=== PATIENT | female | born 1970 | race American Indian/Alaskan Native ===

== ENCOUNTER → 2019-10-11 | Outpatient (CLI) | payer MEDICAID, SELFPAY | PROVIDERS: Family Provider Nurse Practitioner; Visit Provider Nurse Practitioner Psychiatric/Mental Health | DX: F43.12 Post-traumatic stress disorder, chronic (principal) ==

== ENCOUNTER → 2019-10-19 09:38 | Outpatient (BNVA) | payer MEDICAID, SELFPAY | PROVIDERS: Family Provider Nurse Practitioner; PCP Nurse Practitioner; Visit Provider Social Worker | DX: F43.12 Post-traumatic stress disorder, chronic (principal); F32.0 Major depressive disorder, single episode, mild | CPT/HCPCS: 90834 ==

== ENCOUNTER 2019-10-20 10:00 | Outpatient (RCR) | payer OTHER, SELFPAY | END 2019-11-12 23:59 | disposition home or self-care (01) | LOC: BHCOACUTE 10:00 | PROVIDERS: Family Provider Nurse Practitioner; PCP Nurse Practitioner; Visit Provider Psychiatry & Neurology Neurology | DX: M25.50 Pain in unspecified joint (principal); G89.29 Other chronic pain | CPT/HCPCS: H2022 ==

== ENCOUNTER 2019-10-25 10:30 | Outpatient (REF) | payer MEDICAID, SELFPAY ==
[2019-10-25 11:09] LABS: Alanine Aminotransferase 22 U/L (0-33); Albumin Level 4.4 g/dL (3.5-5.2); Alkaline Phosphatase 123 IU/L (35-105); Anion Gap 18.9 (5-19); Aspartate Amino Transferase 29 U/L (0-32); Blood Urea Nitrogen 15 mg/dL (6-20); Calcium 10.3 mg/Dl (8.6-10.0); Carbon Dioxide 23 mmol/L (22-29); Chloride 101 mmol/L (98-107); Chol HDL Ratio 8.17 mg/dL (0.0-4.40); Cholesterol 286 mg/dL (0-200); Globulin 3.4 g/dL (1.3-4.6); Glomerular Filtration Rate 88.9 mL/min (90-130); Glucose 144 mg/dL (74-109); HDL Cholesterol 35 mg/dL (60-100); Potassium 3.9 mmol/L (3.5-5.1); Sodium 139 mmol/L (136-145); Total Bilirubin 0.4 mg/dL (0.15-1.2); Total Protein 7.8 g/dL (6.6-8.7); Triglycerides 505 mg/dL (0-150)
[2019-10-25 11:53] LABS: LDL Cholesterol Direct 190 mg/dL (0-100)
[2019-10-25 11:56] LABS: Estmated Average Glucose 183
== END 2019-10-25 10:31 | disposition home or self-care (01) ==
LOC: LAB 10:30
PROVIDERS: Family Provider Nurse Practitioner; PCP Nurse Practitioner; Visit Provider Nurse Practitioner
DX: E11.65 Type 2 diabetes mellitus with hyperglycemia (principal)
CPT/HCPCS: 36415; 80053; 80061; 83036; 83721

== ENCOUNTER → 2019-11-16 07:56 | Outpatient (BNVA) | payer MEDICAID, SELFPAY | PROVIDERS: Family Provider Nurse Practitioner; PCP Nurse Practitioner; Visit Provider Nurse Practitioner Psychiatric/Mental Health | DX: G89.29 Other chronic pain (principal); G47.00 Insomnia, unspecified; F43.12 Post-traumatic stress disorder, chronic; F33.42 Major depressive disorder, recurrent, in full remission | CPT/HCPCS: 99214 ==

== ENCOUNTER 2019-11-30 10:01 | Emergency (ER) | payer MEDICAID, SELFPAY ==
[2019-11-30 10:22] VITALS: BP 165/106; PULSE 101; RESP 16; TEMP 37; O2SAT 96
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
--- NOTE | 2019-11-30 11:17 | XR_ITS ---
WS: [id number] XR elbow LT min 3V* [id number] REASON FOR EXAM: injury FINDINGS: Calcification is seen along the lateral condyle of the humerus suggesting a remote avulsion fracture and lateral epicondylitis. There is no abnormal fat pad signs seen. No other fractures are noted. XR/XR elbow LT min 3V* [id number] IMPRESSION: Remote fracture off the lateral condyle of the humerus with radial epicondyliti s.
--- NOTE | 2019-11-30 11:17 | XR_ITS ---
WS: [id number] XR hand RT min 3V* [id number] REASON FOR EXAM: injury FINDINGS: The distal interphalangeal joint shows degenerated changes. Fine the phalanges, metacarpals , and carpal show no fractures. The ulna and radius are also normal with no fractures. XR/XR hand RT min 3V* [id number] IMPRESSION: No definite fractures of the hand. Degenerative arthritis of the distal interphalangeal joints.
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
[2019-11-30 12:23] VITALS: BP 156/84; PULSE 101; RESP 18; TEMP 36.4; O2SAT 97
== END 2019-11-30 12:24 | disposition home or self-care (01) ==
PROVIDERS: Emergency Provider Nurse Practitioner Family; Family Provider Nurse Practitioner; PCP Nurse Practitioner
DX: S42.455A Nondisplaced fracture of lateral condyle of left humerus, initial encounter for closed fracture (principal); M77.12 Lateral epicondylitis, left elbow; M19.041 Primary osteoarthritis, right hand; E11.9 Type 2 diabetes mellitus without complications; I10 Essential (primary) hypertension; Z87.891 Personal history of nicotine dependence; Z79.84 Long term (current) use of oral hypoglycemic drugs; Y09 Assault by unspecified means
CPT/HCPCS: 73080; 73130; 99281; 99282

== ENCOUNTER → 2020-01-04 13:44 | Outpatient (BNVA) | payer MEDICAID, SELFPAY | PROVIDERS: Family Provider Nurse Practitioner; PCP Nurse Practitioner; Visit Provider Nurse Practitioner | DX: G89.29 Other chronic pain (principal); M54.5 Low back pain; M54.2 Cervicalgia; M79.10 Myalgia, unspecified site; M25.50 Pain in unspecified joint; F17.210 Nicotine dependence, cigarettes, uncomplicated; Z79.891 Long term (current) use of opiate analgesic; Z71.6 Tobacco abuse counseling | CPT/HCPCS: 99214 ==

== ENCOUNTER → 2020-01-17 09:26 | Outpatient (BNVA) | payer MEDICAID, SELFPAY | PROVIDERS: Family Provider Nurse Practitioner; PCP Nurse Practitioner; Visit Provider Social Worker | DX: F43.12 Post-traumatic stress disorder, chronic (principal); F32.0 Major depressive disorder, single episode, mild | CPT/HCPCS: 90834 ==

== ENCOUNTER → 2020-01-27 08:25 | Outpatient (BNVA) | payer MEDICAID, SELFPAY | PROVIDERS: Family Provider Nurse Practitioner; PCP Nurse Practitioner; Visit Provider Social Worker | DX: F43.12 Post-traumatic stress disorder, chronic (principal); F32.0 Major depressive disorder, single episode, mild | CPT/HCPCS: 90834 ==

== ENCOUNTER → 2020-02-08 08:20 | Outpatient (BNVA) | payer MEDICAID, SELFPAY | PROVIDERS: Family Provider Nurse Practitioner; PCP Nurse Practitioner; Visit Provider Nurse Practitioner Psychiatric/Mental Health | DX: F43.12 Post-traumatic stress disorder, chronic (principal); G89.29 Other chronic pain; G47.00 Insomnia, unspecified | CPT/HCPCS: 90832; 99213 ==

== ENCOUNTER → 2020-04-04 07:52 | Outpatient (BNVA) | payer MEDICAID, SELFPAY | PROVIDERS: Family Provider Nurse Practitioner; PCP Nurse Practitioner; Visit Provider Nurse Practitioner Psychiatric/Mental Health | DX: F43.12 Post-traumatic stress disorder, chronic (principal); G89.29 Other chronic pain; G47.00 Insomnia, unspecified | CPT/HCPCS: 99212 ==